=== PATIENT | male | born 1985 | race Caucasian/White ===

== ENCOUNTER 2020-12-31 07:25 | Emergency (ER) | payer OTHER, SELFPAY ==
[2020-12-31 07:40] VITALS: BP 138/94; PULSE 71; RESP 15; TEMP 36; O2SAT 98; BMI 30.1
--- NOTE | 2020-12-31 07:44 | W.ED.NAVMDI ---
HPI - Nausea/Vomiting/Diarrhea General: Chief complaint: Dizziness Stated complaint: dizzy; n/v Time Seen by Provider: 12/31/20 07:35 History of Present Illness: HPI Narrative: 35-year-old male presents emergency room complaint nausea vomiting or dizziness. Please had the symptoms for about 1 week 3 to 4 days ago he started meclizine which helps for a while but the medicine wears off he states he needs to take another one. He describes more lightheadedness now than actual dizziness or vertiginous symptoms that he had earlier in the week. There is no head trauma no previous injury. He is concerned that some Abilify that he stopped taking a week and a half ago may have something to do with this. MD elicited complaint: nausea and vomiting Onset (ago): week(s) Associated nausea: Yes Associated abdominal pain: No Exacerbating factors: movement (Change in body position) Relieving factors: rest Context: new medication (Abilify stopped approximately 10 days ago) Associated symtoms: Reports nausea; Denies altered mental status, anxiety, bloating, change in vision, chest pain, cough, diaphoresis, decreased urine output, dizziness, dysuria, epistaxis, fatigue, fecal incontinence, fevers/chills, headache(s), anorexia, malaise, myalgias, numbness, palpitations, rash, short of breath, syncope, tenesmus, tinnitus or weakness Review of Systems Const: Denies: fatigue, malaise or diaphoresis Eyes: Denies: change in vision ENMT: Denies: tinnitus or epistaxis Card: Denies: chest pain, palpitations or syncope Resp: Denies: dyspnea, productive cough or non-productive cough GI: Reports: nausea; Denies: bloating or fecal incontinence : Denies: dysuria Skin/Breast: Denies: rash or pruritus Neuro: Denies: headache(s) or dizziness Psych: Denies: anxiety PFSH ED PFSH: Social History Smoking and tobacco status: never smoked Physical Exam Const: COMMON NORMALS: no acute distress EXAM LIMITATIONS: no altered mental status GENERAL APPEARANCE: cooperative and comfortable ORIENTATION/CONSCIOUSNESS: Yes awake, Yes oriented to person, Yes oriented to place and Yes oriented to time HENMT: COMMON NORMALS: normocephalic, atraumatic and hearing grossly normal bilaterally HEAD & SCALP: normocephalic and atraumatic Neck/C-Spine: COMMON NORMALS: no JVD Resp: COMMON NORMALS: normal respiratory effort, No retractions, No use of accessory muscles and clear to auscultation bilaterally AUSCULTATION: clear to auscultation bilaterally Cardio: COMMON NORMALS: no JVD, regular rate, regular rhythm and No murmurs present (Cardio) RATE: regular rate RHYTHM: regular rhythm GI: COMMON NORMALS: Soft to palpation and No hepatosplenomegaly present AUSCULTATION: Yes normoactive bowel sounds PALPATION: Yes Soft to palpation, No Tenderness to palpation present (GI), No Guarding due to palpation present (GI) and Yes No hepatosplenomegaly present Extremity: COMMON NORMALS: normal to inspection, capillary refill normal, no clubbing, cyanosis or edema, no calf tenderness and no pedal edema Neuro: SENSORIUM/ORIENTATION: Yes oriented to person, Yes oriented to place and Yes oriented to time Skin: COMMON NORMALS: no rashes or lesions noted GENERAL SKIN EXAM: no rashes or lesions noted Course Vital Signs: Vital signs: Vital Signs Temperature 96.8 F L 12/31/20 07:40 Pulse Rate 61 12/31/20 09:36 Respiratory Rate 20 H 12/31/20 09:36 Blood Pressure 139/87 12/31/20 09:36 Pulse Oximetry 98 12/31/20 09:36 MDM - Nausea/Vomiting/Diarrhea MDM Narrative: Medical decision making narrative: Patient doing well at this point feel somewhat better will go and discharge him home and he is has labyrinthitis continue the meclizine to use as needed if not improving can follow-up with ENT or primary care for further evaluation return if has further problems. Lab Data: Labs: Lab Results 12/31/20 12/31/20 Range/Units 07:59 07:59 WBC 6.7 (4.0-10.0) 10^3/ uL RBC 5.32 H (4.1-5.3) 10^6/u L Hgb 15.9 (11.7-16.6) g/dL Hct 47.6 (42.0-52.0) % MCV 89.5 (80-94) fl MCH 29.9 (28.0-34.0) pg MCHC 33.4 (30.0-36.0) g/dL RDW 12.8 (12.1-15.1) % Plt Count 271 (130-400) 10^3/c mm MPV 11.1 H (7.4-10.4) fL Neut % (Auto) 68.1 % Lymph % (Auto) 22.2 % [place] % (Auto) 7.6 % Eos % (Auto) 1.2 % Baso % (Auto) 0.6 % Neut # (Auto) 4.57 (1.8-7.7) 10^3/u L Lymph # (Auto) 1.5 (0.8-4.8) 10^3/u L [place] # (Auto) 0.5 (0.2-0.9) 10^3/u L Eos # (Auto) 0.1 (0.0-0.8) 10^3/u L Baso # (Auto) 0.0 (0.0-0.1) 10^3/u L Nucleated RBC % (a uto) 0 % Nucleated RBCs # 0.0 /100WBC Sodium 138 (136-145) mmol/L Potassium 4.8 (3.5-5.1) mmol/L Chloride 102 (98-107) mmol/L Carbon Dioxide 26 (22-29) mmol/L Anion Gap 14.8 (5-19) BUN 10 (6-20) mg/dL Creatinine 0.9 (0.7-1.2) mg/dL GFR Calculation 95.5 (90-130) mL/min Glucose 111 (65-115) mg/dL Calculated Osmolal ity 286 (285-295) mOsm/k g Calcium 9.3 (8.5-10.5) mg/dL Discharge Plan Discharge Patient Disposition: Home Clinical Impression: Labyrinthitis Condition: Stable Prescriptions: No Action citalopram 40 mg tablet 40 mg PO DAILY RF: 0 Discharge Orders: Discharge ED (Routine); Ordered 12/31/20 Ordered By: oFrd Lopez Referrals: Jackson Rivas NP [Primary Care Provider] - Discharge Diet: Usual diet Discharge Activity: Increase activity as tolerated Patient Instructions: Opioid Safety Activity Restrictions/Additional Instructions: Continue to use the meclizine you were prescribed earlier. If persist follow-up with your primary care doctor for further evaluation or possible referral to ENT or to vestibular rehab. Coding Level of Care Code ED Door Serviceman for Chg Fwd Exam Comprehensive
[2020-12-31 07:47] VITALS: PULSE 91; RESP 17; O2SAT 99
[2020-12-31] MEDS: ondansetron 2 mg/ML SDV 2 mL 4 MG IVP (07:57)
[2020-12-31] MEDS: sodium chloride 0.9% 1,000 ML 999 ML IV (07:57)
[2020-12-31 08:14] LABS: Basophils % 0.6 %; Eosinophils # 0.1 10^3/uL (0.0-0.8); Eosinophils % 1.2 %; Hematocrit 47.6 % (42.0-52.0); Hemoglobin 15.9 g/dL (11.7-16.6); Lymphocytes # 1.5 10^3/uL (0.8-4.8); Lymphocytes % 22.2 %; Mean Corpuscular HGB Conc 33.4 g/dL (30.0-36.0); Mean Corpuscular Hemoglobin 29.9 pg (28.0-34.0); Mean Corpuscular Volume 89.5 fl (80-94); Mean Platelet Volume 11.1 fL (7.4-10.4); Monocytes # 0.5 10^3/uL (0.2-0.9); Monocytes % 7.6 %; Neutrophils # 4.57 10^3/uL (1.8-7.7); Neutrophils % 68.1 %; Nucleated Red Blood Cells % 0 %; Platelet Count 271 10^3/cmm (130-400); Red Blood Count 5.32 10^6/uL (4.1-5.3); Red Cell Distribution Width 12.8 % (12.1-15.1); White Blood Count 6.7 10^3/uL (4.0-10.0)
[2020-12-31 08:24] VITALS: BP 128/93; PULSE 57; RESP 17; O2SAT 99
[2020-12-31 08:33] LABS: Anion Gap 14.8 (5-19); Blood Urea Nitrogen 10 mg/dL (6-20); Calcium 9.3 mg/dL (8.5-10.5); Carbon Dioxide 26 mmol/L (22-29); Chloride 102 mmol/L (98-107); Glomerular Filtration Rate 95.5 mL/min (90-130); Glucose 111 mg/dL (65-115); Osmolality Calculated 286 mOsm/kg (285-295); Potassium 4.8 mmol/L (3.5-5.1); Sodium 138 mmol/L (136-145)
[2020-12-31 09:19] VITALS: BP 139/87; PULSE 61; RESP 15; O2SAT 99
[2020-12-31 09:36] VITALS: BP 139/87; PULSE 61; RESP 20; O2SAT 98
== END 2020-12-31 09:36 | disposition home or self-care (01) ==
PROVIDERS: Emergency Provider Family Medicine; PCP Nurse Practitioner Family
DX: H83.09 Labyrinthitis, unspecified ear (principal)
CPT/HCPCS: 80048; 85025; 96361; 96374; 99284; J2405; J7030

== ENCOUNTER 2021-09-22 15:57 | Emergency (ER) | payer OTHER, SELFPAY ==
[2021-09-22] VITALS (7 sets, daily range): BP systolic 124–151; BP diastolic 77–100; PULSE 60–85; RESP 14–16; TEMP 36.8; O2SAT 97–99; BMI 33.7
--- NOTE | 2021-09-22 16:08 | XRR_ITS ---
PROCEDURE INFORMATION: Exam: XR Chest Exam date and time: 09/22/2021 4:36 PM Age: 36 years old Clinical indication: Chest wall pain; Additional info: Chest pain TECHNIQUE: Imaging protocol: XR of the chest. Views: 1 view. COMPARISON: CR Cervical Spine AP/Lat* [id number] 12/12/2018 3:34 PM FINDINGS: Lungs: Unremarkable. No consolidation. Pleural spaces: Unremarkable. No pleural effusion. No pneumothorax. Heart/Mediastinum: Unremarkable. No cardiomegaly. Bones/joints: Unremarkable. XR/XR chest 1V portable [id number] IMPRESSION: No acute findings.
--- NOTE | 2021-09-22 16:47 | ED_ITS ---
HPI - Chest Pain General: Chief Complaint: Chest Pain Stated Complaint: Chest pain since 1pm Time Seen by Provider: 09/22/21 16:11 PFSH ED PFSH: Family History Other CAD (coronary artery disease) Social History Smoking and tobacco status: never smoked Alcohol intake: current Alcohol intake frequency: holidays/special occasions only History of recent travel: No Course Vital Signs: Vital signs: Vital Signs Temperature 98.2 F 09/22/21 16:01 Pulse Rate 71 09/22/21 16:01 Respiratory Rate 14 09/22/21 16:01 Blood Pressure 151/100 09/22/21 16:01 Pulse Oximetry 98 09/22/21 16:01 Discharge Plan Discharge Condition: Stable Prescriptions: No Action citalopram 40 mg tablet 40 mg PO DAILY 0RF hydrochlorothiazide 50 mg tablet 50 mg PO DAILY 0RF omeprazole 40 mg capsule,delayed release(DR/EC) 40 mg PO DAILY 0RF magnesium 30 mg Tablet 30 mg PO DAILY 0RF Referrals: Jackson Rivas NP [Primary Care Provider] - Coding Level of Care Code ED Cabin Equipment Supervisor for Karlie Guzman
[2021-09-22 16:53] LABS: Basophils # 0.1 10^3/uL (0.0-0.1); Basophils % 0.6 %; Eosinophils # 0.1 10^3/uL (0.0-0.8); Hematocrit 45.5 % (42.0-52.0); Hemoglobin 15.6 g/dL (11.7-16.6); Lymphocytes % 22.6 %; Mean Corpuscular HGB Conc 34.3 g/dL (30.0-36.0); Mean Corpuscular Hemoglobin 29.7 pg (28.0-34.0); Mean Corpuscular Volume 86.5 fl (80-94); Mean Platelet Volume 11.4 fL (7.4-10.4); Monocytes # 0.9 10^3/uL (0.2-0.9); Monocytes % 9.8 %; Neutrophils # 5.77 10^3/uL (1.8-7.7); Neutrophils % 65.7 %; Nucleated Red Blood Cells % 0 %; Platelet Count 292 10^3/cmm (130-400); Red Blood Count 5.26 10^6/uL (4.1-5.3); Red Cell Distribution Width 12.8 % (12.1-15.1); White Blood Count 8.8 10^3/uL (4.0-10.0)
--- NOTE | 2021-09-22 16:57 | ED_ITS ---
HPI - General Adult General: Chief complaint: Chest Pain Stated complaint: Chest pain since 1pm Time Seen by Provider: 09/22/21 16:11 History of Present Illness: CC: Chest Pain HPI: This is a [36]yo patient hx of family hx of CAD presenting to the ED complaining of acute sudden onset of achy chest pain since 1500 WITHOUT radiation to the back or shoulders. She was at rest when this pain started. Patient denies any pressure-like sensation or sharp stabbing chest pain. Pain is constant on relieving. No associated with shortness of breath, chest pain or dyspnea on exertion. Pain is not tearing in nature and does not radiate to the back. Pain not associated with vomiting or PO intake. Denies any recent sympathomimetic drug use. Patient denies any cough. Denies palpitations, dysphagia, diaphoresis, radiation of pain to bilateral arms, jaw. Denies F/N/V/D. Patient denies any recent immobility, surgery, unilateral leg swelling, or prior PE. Patient denies any orthopnea. Patient has first degree family with heart attack (Father in 40s) Onset: 1500 Duration: ongoing since 1500 Location: home Severity: mild/moderate Associated symptoms: Reports chest pain; Deny dyspnea, nausea, rash, palpitations or vomiting Review of Systems Const: Denies: fever(s) or chills Eyes: Denies: change in vision ENMT: Denies: mouth pain Card: Reports: chest pain; Denies: palpitations Resp: Denies: dyspnea or non-productive cough GI: Denies: abdominal pain, nausea, vomiting or diarrhea : Denies: dysuria Musc: Denies: extremity pain Skin/Breast: Denies: rash or new lesions Neuro: Denies: weakness in extremities Psych: Reports: other (Normal mood) Charanjit/Lymph: Denies: easy bruising PFSH ED PFSH: Medical History (Updated 09/22/21 @ 17:57 by Nasima Mendiola MD) No pertinent family history No pertinent past medical history Family History Other CAD (coronary artery disease) Social History Smoking and tobacco status: never smoked Alcohol intake: current Alcohol intake frequency: holidays/special occasions only History of recent travel: No Physical Exam Const: COMMON NORMALS: alert HENMT: COMMON NORMALS: atraumatic HEAD & SCALP: atraumatic MOUTH: moist mucous membranes not abnormal Eye: COMMON NORMALS: EOMs intact bilaterally and conjunctivae normal CONJU NCTIVA: Yes conjunctivae normal Neck/C-Spine: COMMON NORMALS: full ROM and supple Resp: COMMON NORMALS: normal respiratory effort and clear to auscultation bilaterally AUSCULTATION: clear to auscultation bilaterally Cardio: COMMON NORMALS: regular rate RATE: regular rate OTHER: 2+ radial pulses b/l GI: COMMON NORMALS: Soft to palpation and non-tender PALPATION: Yes Soft to palpation Extremity: COMMON NORMALS: full ROM Neuro: SENSORIUM/ORIENTATION: Yes alert MOTOR EXAM: No Abnormal motor strength present and Other motor observations present (no focal motor deficits) Psych: COMMON NORMALS: speech normal SPEECH: Yes normal speech MOOD & AFFECT: Yes euthymic mood Course Vital Signs: Vital signs: Vital Signs Temperature 98.2 F 09/22/21 16:01 Pulse Rate 60 09/22/21 18:30 Respiratory Rate 16 09/22/21 18:30 Blood Pressure 135/94 09/22/21 18:30 Pulse Oximetry 97 09/22/21 18:30 MDM - General Adult Medical Decision Making [36]yo patient w/ hx of family hx of CAD presenting to the ED with evaluation of new onset of achy chest pain x 4 hrs. HDS, pulse 2+ radially bilaterally, no signs of fluid overload, AAOx3, neuro exam intact. Given History and Exam today I have no suspicion for ACS, Pneumothorax, Pneumonia, Pulmonary Embolus, Tamponade, Aortic Dissection or other emergent problems as a cause for this presentation. Workup: ECG, CXR, CBC, BMP, Troponin Interventions: Toradol Findings: ECG: No overt evidence of STEMI, hyperacute T waves, localizable STD or T wave inversions. No evidence of Brugada?s sign, delta wave, epsilon wave, significantly prolonged QTc, or malignant arrhythmia. No Q waves. Other Labs unremarkable for emergent problems. CXR: Without PTX, PNA, or widened mediastinum Last Stress Test: never Last Heart Catheterization: never HEART Score: 0 PERC: Negative [6:45pm] On reassessment, the patient is HDS, no complaints of persistent chest pain in the ED after evaluation. ECG is non-ischemic. Workup today is unremarkable. Doubt ACS/PE or other emergent causes of chest pain. Since patient has a family history of cardiac disease, decision was made to order an outpatient cardiac stress test. I have given patient follow up with our case managers to be seen by our outpatient Cardiology for stress test. Patient aware of a call from our case managers to schedule for appointment(s) and verbalizes understanding of the importance of following up. Rx: Tylenol 500mg Q6Hrs x 4 days PRN pain Disposition: Discharge. Strict return precautions discussed with the patient with full understanding. Advised patient to follow up promptly with a primary care provider in 24-48 hrs if the patient has persistent symptoms. Given return instructions for any crushing/tearing chest pain, focal weakness, syncope or any new or concerning issues. Lab Data : 09/22/21 16:35 09/22/21 16:35 Radiology Impressions Chest X-Ray 09/22/21 16:08 IMPRESSION: No acute findings. Laboratory Results WBC 8.8 10^3/uL (4.0-10.0) 09/22/21 16:35 RBC 5.26 10^6/uL (4.1-5.3) 09/22/21 16:35 Hgb 15.6 g/dL (11.7-16.6) 09/22/21 16:35 Hct 45.5 % (42.0-52.0) 09/22/21 16:35 MCV 86.5 fl (80-94) 09/22/21 16:35 MCH 29.7 pg (28.0-34.0) 09/22/21 16:35 MCHC 34.3 g/dL (30.0-36.0) 09/22/21 16:35 RDW 12.8 % (12.1-15.1) 09/22/21 16:35 Plt Count 292 10^3/cmm (130-400) 09/22/21 16:35 MPV 11.4 fL (7.4-10.4) H 09/22/21 16:35 Neut % (Auto) 65.7 % 09/22/21 16:35 Lymph % (Auto) 22.6 % 09/22/21 16:35 [place] % (Auto) 9.8 % 09/22/21 16:35 Eos % (Auto) 1.0 % 09/22/21 16:35 Baso % (Auto) 0.6 % 09/22/21 16:35 Neut # (Auto) 5.77 10^3/uL (1.8-7.7) 09/22/21 16:35 Lymph # (Auto) 2.0 10^3/uL (0.8-4.8) 09/22/21 16:35 [place] # (Auto) 0.9 10^3/uL (0.2-0.9) 09/22/21 16:35 Eos # (Auto) 0.1 10^3/uL (0.0-0.8) 09/22/21 16:35 Baso # (Auto) 0.1 10^3/uL (0.0-0.1) 09/22/21 16:35 Nucleated RBC % (auto) 0 % 09/22/21 16:35 Nucleated RBCs # 0.0 /100WBC 09/22/21 16:35 Sodium 137 mmol/L (136-145) 09/22/21 16:35 Potassium 3.2 mmol/L (3.5-5.1) L 09/22/21 16:35 Chloride 97 mmol/L (98-107) L 09/22/21 16:35 Carbon Dioxide 29 mmol/L (22-29) 09/22/21 16:35 Anion Gap 14.2 (5-19) 09/22/21 16:35 BUN 17 mg/dL (6-20) 09/22/21 16:35 Creatinine 0.9 mg/dL (0.7-1.2) 09/22/21 16:35 GFR Calculation 95.0 mL/min (90-130) 09/22/21 16:35 Glucose 83 mg/dL (65-115) 09/22/21 16:35 Calculated Osmolality 285 mOsm/kg (285-295) 09/22/21 16:35 Calcium 9.8 mg/dL (8.5-10.5) 09/22/21 16:35 Troponin T Baseline 6 ng/L (0-15) 09/22/21 16:35 Troponin T 120 Minute 6.00 ng/L (0-15) 09/22/21 18:43 Imaging Data Other Imaging: Radiologist's impression: [place] [address] [address] XRay Report Signed Patient: Kalia Reveles Unit #: [id number] : 1985 Age/Sex: 36 / M ADM Date: 09/22/21 Loc: ER Room/Bed: Attending Dr: Ordering Provider/Ordering MD: Nasima Mendiola MD Date of Service: 09/22/21 Procedure(s): XR chest 1V portable [id number] Accession Number(s): [id number] Report Number: [id number] PROCEDURE INFORMATION: Exam: XR Chest Exam date and time: 09/22/2021 4:36 PM Age: 36 years old Clinical indication: Chest wall pain; Additional info: Chest pain TECHNIQUE: Imaging protocol: XR of the chest. Views: 1 view. COMPARISON: CR Cervical Spine AP/Lat* [id number] 12/12/2018 3:34 PM FINDINGS: Lungs: Unremarkable. No consolidation. Pleural spaces: Unremarkable. No pleural effusion. No pneumothorax. Heart/Mediastinum: Unremarkable. No cardiomegaly. Bones/joints: Unremarkable. XR/XR chest 1V portable [id number] IMPRESSION: No acute findings. ? Dictated By: Jorge Kimble DO Signed By: Jorge Kimble DO Signed Date/Time: 09/22/21 1706 DD/ 1636 Discharge Plan Discharge Patient Disposition: Home Clinical Impression: Chest pain Condition: Stable Prescriptions: New acetaminophen 500 mg tablet 500 mg PO Q6H PRN (Reason: pain) 5 Days Qty: 20 0RF No Action citalopram 40 mg tablet 40 mg PO DAILY 0RF hydrochlorothiazide 50 mg tablet 50 mg PO DAILY 0RF omeprazole 40 mg capsule,delayed release(DR/EC) 40 mg PO DAILY 0RF magnesium 30 mg Tablet 30 mg PO DAILY 0RF Discharge Orders: Discharge ED (Routine); Ordered 09/22/21 Ordered By: Nasima Mendiola Referrals: Jackson Rivas NP [Primary Care Provider] - Discharge Diet: Advance as tolerated Discharge Activity: Increase activity as tolerated Patient Instructions: Chest Pain (ED) Activity Restrictions/Additional Instructions: Come back to the emergency room if your chest pain worsens, have any fever or ch ills, worsening shortness of breath, worsening exertional lightheadedness, or any new or concerning complaints. Our case managers will have you follow-up with Cardiology in the next few days for outpatient stress test. You would be expected to have a phone call with our case managers who will put you on the schedule. You can expect a call from us in the next 2-3 days. If you don't hear from us, call us back in the emergency room at [phone]. Coding Level of Care Code ED Muffler Installer for Karlie Fwd Exam Comprehensive
[2021-09-22 17:09] LABS: Troponin(5th) Baseline 6 ng/L (0-15)
[2021-09-22 17:10] LABS: Anion Gap 14.2 (5-19); Blood Urea Nitrogen 17 mg/dL (6-20); Calcium 9.8 mg/dL (8.5-10.5); Carbon Dioxide 29 mmol/L (22-29); Chloride 97 mmol/L (98-107); Glucose 83 mg/dL (65-115); Osmolality Calculated 285 mOsm/kg (285-295); Potassium 3.2 mmol/L (3.5-5.1); Sodium 137 mmol/L (136-145)
[2021-09-22] MEDS: ketorolac 30 mg/mL INJ IVP (18:02)
--- NOTE | 2021-09-22 18:08 | ECG_ITS ---
[facility] Test Date: 2021-09-22 Pat Name: Kalia Reveles Department: Room: Gender: Male Shoe Salesman: : 1985 Requested By: Nasima Mendiola Order Number: [id number] Akira MD: Claude Puente M.D. Measurements Intervals [place] Rate: 63 P: 62 NV: 162 QRS: 7 QRSD: 108 T: 51 QT: 437 QTc: 448 Interpretive Statements SINUS RHYTHM NONSPECIFIC T-WAVE ABNORMALITY Compared to ECG 09/22/2021 16:10:09 Sinus arrhythmia no longer present Intraventricular conduction delay no longer present T-wave abnormality still present Electronically Signed On 09-22-2021 22:28:26 CDT by Claude Puente M.D. [email or web address]/store/[id number]
--- NOTE | 2021-09-22 22:08 | ECG_ITS ---
[facility] Test Date: 2021-09-22 Pat Name: Kalia Reveles Department: Room: Gender: Male Night Nurse: : 1985 Requested By: Nasima Mendiola Order Number: [id number] Akira MD: Claude Puente M.D. Measurements Intervals [place] Rate: 71 P: 62 NV: 143 QRS: 11 QRSD: 112 T: 57 QT: 430 QTc: 468 Interpretive Statements SINUS RHYTHM WITH SINUS ARRHYTHMIA MODERATE INTRAVENTRICULAR CONDUCTION DELAY [110+ ms QRS DURATION] NONSPECIFIC T-WAVE ABNORMALITY Compared to ECG 12/12/2018 15:25:58 Intraventricular conduction delay now present T-wave abnormality still present Electronically Signed On 09-22-2021 22:27:44 CDT by Claude Puente M.D. [email or web address] [id number]
--- NOTE | 2021-09-28 17:10 | DCPLANNER ---
Addendum entered by Hannah Migule 01/12/22 14:22: Patient had a follow up appointment with heart care - patient did attend appointment. Patient had an outpatient stress test scheduled - patient did attend appointment. Addendum entered by Hannah Miguel 10/06/21 07:05: Patient has a follow up appointment scheduled for Saturday, November 15, 2021 at 1:[address] Lowry at [facility]. Clinic will call patient with appointment information. Original Note: manager sharepoint had message to schedule an outpatient stress test for patient and a follow up appointment with cardiology. manager sharepoint faxed signed order to centralized scheduling, who will call patient with appointment order. manager sharepoint sent patients information to the Heart Care front staff. Patients information will be printed and reviewed. Clinic will call patient with appointment information.
== END 2021-09-22 19:34 | disposition home or self-care (01) ==
PROVIDERS: Emergency Provider Emergency Medicine; PCP Nurse Practitioner Family
DX: R07.9 Chest pain, unspecified (principal); Z82.49 Family history of ischemic heart disease and other diseases of the circulatory system
CPT/HCPCS: 71045; 80048; 84484; 85025; 93005; 96374; 99284; J1885

== ENCOUNTER 2021-11-23 08:01 | Outpatient (CLI) | payer OTHER, SELFPAY ==
--- NOTE | 2021-11-23 | ECG_ITS ---
[facility] Test Date: 2021-11-23 Pat Name: Kalia Reveles Department: Room: Gender: Male Field Evidence Technician: Zo Mcleod : 1985 Requested By: Nasima Mendiola Order Number: [id number] Akira MD: Claude Puente M.D. Interpretive Statements NAME OF STUDY: LEXISCAN SESTAMIBI STRESS TEST INDICATION: Chest Pain, PROCEDURE: At the baseline, the EKG revealed normal sinus rhythm with some nonspecific T wave changes. The baseline blood pressure was 136/88 mm Hg with a heart rate of 66 beats/min. Lexiscan was infused over a period of 20 seconds. A total of 0.4 milligrams of Lexiscan was infused. The stress phase was continued for a total of 5 minutes. Heart rate at the end of the stress phase was 92 with a blood pressure 128/81. The EKG at the peak infusion revealed no significant changes. Sestamibi was injected 20 seconds after the Lexiscan infusion. Blood pressure at the end of the recovery phase was 131/78 with a heart rate of 80 per minute. CONCLUSION: 1. No significant EKG changes with the LexiScan infusion 2. No LexiScan induced chest pain or cardiac arrhythmia 3. Normal blood pressure and heart rate response 4. Sestamibi/sestamibi perfusion scan pending; see separate report. Electronically Signed On 11-24-2021 18:12:03 CDT by Claude Puente M.D. [id number]
[2021-11-23 08:35] VITALS: BMI 32.0
--- NOTE | 2021-11-23 08:40 | NMCV_ITS ---
NM irvin perf SPECT r/s* [id number] Kalia Reveles Age: 36 Gender: M : 1985 Exam Date: 11/23/2021 08:40 Ordering Phys: Nasima Mendiola MD Technologist: PAULA Adrian Exam Location: [facility] Indications: CHEST PAIN STRESS TEST Please see separate stress test report in [facility] for full findings IMAGE PROTOCOL Rest/Stress 1 Lexiscan Day Radiopharmaceutical Dose (mCi) Administration Site Administered by Rest: Tc-99m 10.7 IV PAULA Lin Sestamibi Stress:Tc-99m 32.5 IV PAULA Adrian Sestamielaine Rest: 23-Nov-2021 60 Discovery 630 Stress: 23-Nov-2021 30 Discovery 630 0.4mg Lexiscan. Images obtained in supine and prone position. SPECT RESULTS Technical Quality: Excellent Raw Data Analysis: Normal Image Corrections: No attenuation or motion correction applied Summed Stress Score: 0 Summed Rest Score: 0 Summed Difference Score: 0 PERFUSION FINDINGS Uniform myocardial tracer uptake. No significant perfusion normalities. FUNCTIONAL RESULTS (calculated via Gated SPECT) Stress Image LV EF (%): 67 Stress EDV (mL):132 TID: 1.14 Stress ESV (mL):44 FUNCTIONAL FINDINGS: Segmental wall motion analysis revealing no gross wall motion abnormalities IMPRESSIONS 1. Unremarkable Myocardial perfusion imaging 2. Normal LV ejection fraction of 67%. 3. LV wall motion analysis revealing no gross wall motion abnormalities. 4. Near normal LV volume Low probability for coronary ischemia, based on the above findings Dr Claude Puente MD FACC (Electronically Signed) Final Date: 23 November 2021 18:38 S
[2021-11-23] MEDS: regadenoson 0.4 Mg/5 ml Syringe IVP (10:47)
[2021-11-23 11:06] VITALS: BP 131/78; PULSE 79
== END 2021-11-23 08:02 | disposition home or self-care (01) ==
PROVIDERS: PCP Nurse Practitioner Family; Visit Provider Emergency Medicine
DX: R07.9 Chest pain, unspecified (principal)
CPT/HCPCS: 78452; 93017; A9500; J2785

== ENCOUNTER 2021-12-06 09:28 | Emergency (ER) | payer OTHER, SELFPAY ==
[2021-12-06] VITALS (28 sets, daily range): BP systolic 121–160; BP diastolic 74–99; PULSE 48–72; RESP 12–22; TEMP 36.7; O2SAT 97–100; BMI 32.3
--- NOTE | 2021-12-06 10:12 | ECG_ITS ---
[facility] Test Date: 2021-12-06 Pat Name: Kalia Reveles Department: Room: Gender: Male Mold Maker: : 1985 Requested By: Keyon Hyatt Order Number: [id number] Champion MD: Mikala Lowry M.D. Measurements Intervals [place] Rate: 61 P: 66 SD: 151 QRS: 19 QRSD: 105 T: 43 QT: 422 QTc: 428 Interpretive Statements SINUS RHYTHM Compared to ECG 09/22/2021 18:50:28 T-wave abnormality no longer present Electronically Signed On 12-07-2021 18:49:12 CDT by Mikala Lowry M.D. [id number]
--- NOTE | 2021-12-06 12:59 | ED_ITS ---
HPI - General Adult General: Chief complaint: Syncope Stated complaint: Blacked out Time Seen by Provider: 12/06/21 12:54 History of Present Illness: HPI: [36]yo patient w/ no PMH presents emergency room after an episode of syncope at 9 AM. 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 Patient reports feeling nauseous prior to this except syncopized. The incident was witnessed by the patient?s coworkers who reported LOC. She did not hit his head according to his coworkers who lost consciousness for a minute. Patient could not recall the incident but denies a ny post-ictal confusion, tongue biting or bladder/bowel incontinence. Patient denies any prior hx of syncope in the past. No associated symptoms of chest pain, shortness of breath, palpitations or focal weakness right before the incident. No family hx of sudden cardiac or unexplained . Onset: 9am Duration: once Location: home Severity: moderate Associated symptoms: Deny chest pain, dyspnea, nausea, rash, palpitations or vomiting Review of Systems Const: Denies: fever(s) or chills Eyes: Denies: change in vision ENMT: Denies: mouth pain Card: Denies: chest pain or palpitations Resp: Denies: dyspnea or non-productive cough GI: Denies: abdominal pain, nausea, vomiting or diarrhea : Denies: dysuria Musc: Denies: extremity pain Skin/Breast: Reports: other; Denies: rash or new lesions Neuro: Reports: other (+sycnope); Denies: weakness in extremities Psych: Reports: other (Normal mood) Charanjit/Lymph: Denies: easy bruising PFSH ED PFSH: Medical History Family history of coronary artery disease occurring prior to 55 years of age Hypertension No pertinent family history No pertinent past medical history Family History Father , [place] 43 y/o Myocardial infarction Mother Hyperlipidemia Other CAD (coronary artery disease) Social History Smoking and tobacco status: never smoked Alcohol intake: current Alcohol intake frequency: holidays/special occasions only History of recent travel: No Physical Exam Const: COMMON NORMALS: alert HENMT: COMMON NORMALS: atraumatic HEAD & SCALP: atraumatic MOUTH: moist mucous membranes not abnormal Eye: COMMON NORMALS: EOMs intact bilaterally and conjunctivae normal CONJUNCTIVA: Yes conjunctivae normal Neck/C-Spine: COMMON NORMALS: full ROM and supple Resp: COMMON NORMALS: normal respiratory effort and clear to auscultation bilaterally AUSCULTATION: clear to auscultation bilaterally Cardio: COMMON NORMALS: regular rate RATE: regular rate GI: COMMON NORMALS: Soft to palpation and non-tender PALPATION: Yes Soft to palpation Extremity: COMMON NORMALS: full ROM Neuro: SENSORIUM/ORIENTATION: Yes alert MOTOR EXAM: No Abnormal motor strength present and Other motor observations present (no focal motor deficits) OTHER: Mental status? Awake, alert, and oriented to self, year, month, location, and situation.? Following simple axial and appendicular commands.? Has appropriate fund of knowledge, comprehension, and insight.? Able to recall and understands pertinent aspects of medical history and current treatment status.? ? Language? Speech is fluent without word-finding difficulties.? Intact naming, expression, secretary receptionist, and repetition.? ? Cranial nerves? 2,3,4,6: PERRL, EOMI with no nystagmus. 5: Intact sensation to light touch, symmetric? 7: Smile symmetrical, no facial droop.? 8: Hearing grossly intact.? 9,10: Normal palate movement.? 11: Normal strength in trapezius bilaterally 12: Tongue protrudes midline.? ? Motor examination? Normal bulk & tone. Strength as follows (R/L): Delts (5/5), Biceps (5/5), Triceps (5/5), Wrist ext (5/5), hip flexors (5/5), plantarflexors (5/5), dorsiflexors (5/5). Sensation? Light Touch: Grossly intact and equal in upper and lower extremities bilaterally? Romberg: Negative.? Distal joint position sense intact ? Coordination? Vhbdfb-at-geoi-finger movements intact without dysmetria or past-pointing.? Rapid fingertaps: preserved amplitude without decriment.? No tremor, myoclonus or truncal ataxia.? ? Gait/stance? Steady, normal narrow base gait with appropriate arm swing and turning.? Tandem gait without hesitation or loss of balance. Psych: COMMON NORMALS: speech normal SPEECH: Yes normal speech MOOD & AFFECT: Yes euthymic mood Course Vital Signs: Vital signs: Vital Signs Temperature 98.1 F 12/06/21 10:02 Pulse Rate 66 12/06/21 15:16 Respiratory Rate 16 12/06/21 15:16 Blood Pressure 121/74 12/06/21 15:16 Pulse Oximetry 100 12/06/21 15:16 Oxygen Delivery Me thod 12/06/21 10:02 MDM - General Adult Medical Decision Making [36]yo patient w/ no PMH presenting to the ED with Syncope. No association with chest pain, dyspnea, palpitations, or focal neurological deficits. HDS Neuro intact. Fingerstick wnl. Given history, exam and workup, presentation not consistent with seizures given a short time course, no postictal state, no seizure activity. Low suspicion for acute neurologic catastrophes to include ICH given lack of trauma, risk factors for bleeding diathesis, or neurogenic causes of syncope. Low suspicion for vascular catastrophes to include PE, thoracic aortic dissection, AAA rupture. Presentation not consistent with acute life threatening arrhythmia, structural heart disease, electrical conduction abnormalities, or ACS. Workup: CBC, BMP EKG, fingerstick, orthostatics, and if female, telemetry, reassessment, and PO challenge Intervention: Serial reevaluation, telemetry, PO challenge Findings: EKG: No e/o STEMI. No evidence of Brugada?s sign, delta wave, epsilon wave, significantly prolonged QTc, HOCM or malignant arrhythmia. SF Syncope Rule: 0 Mcdonald Syncope Risk Score: 0 [2:34pm] On reassessment, patient denies any syncope or near syncope episodes in the ER. Telemetry without any dysrhythmia. Patient has been able to tolerate PO and ambulate in the ER without issues. Given age, limited to no comorbidities, no family hx of SCD, history more consistent with situational/reflex syncope vs orthostatic/decreased fluid intake, patient is unlikely to experience sudden cardiac decompensation at this time and will NOT benefit from inpatient observation/telemetry at this time. Although the incidence of paroxysmal ventricular tachycardia/VF is very unlikely, I instructed the patient to follow up with a PCP and a Take Up Supervisor for further evaluation of syncope should the patient need it. Disposition: Discharge. Patient is at baseline at this time. Return precautions expressed and understood in person. Advised follow up with a primary care provider or clinic physician in the next 24-48 hours. Given return instructions for any new or concerning symptoms including chest pain, focal neurological deficits, dyspnea, or any new or concerning findings. Lab Data : 12/06/21 13:44 12/06/21 13:44 Laboratory Results WBC 8.6 10^3/uL (4.0-10.0) 12/06/21 13:44 RBC 5.27 10^6/uL (4.1-5.3) 12/06/21 13:44 Hgb 15.4 g/dL (11.7-16.6) 12/06/21 13:44 Hct 46.4 % (42.0-52.0) 12/06/21 13:44 MCV 88.0 fl (80-94) 12/06/21 13:44 MCH 29.2 pg (28.0-34.0) 12/06/21 13:44 MCHC 33.2 g/dL (30.0-36.0) 12/06/21 13:44 RDW 13.1 % (12.1-15.1) 12/06/21 13:44 Plt Count 270 10^3/cmm (130-400) 12/06/21 13:44 MPV 10.8 fL (7.4-10.4) H 12/06/21 13:44 Neut % (Auto) 71.4 % 12/06/21 13:44 Lymph % (Auto) 19.9 % 12/06/21 13:44 [place] % (Auto) 6.8 % 12/06/21 13:44 Eos % (Auto) 1.3 % 12/06/21 13:44 Baso % (Auto) 0.5 % 12/06/21 13:44 Neut # (Auto) 6.17 10^3/uL (1.8-7.7) 12/06/21 13:44 Lymph # (Auto) 1.7 10^3/uL (0.8-4.8) 12/06/21 13:44 [place] # (Auto) 0.6 10^3/uL (0.2-0.9) 12/06/21 13:44 Eos # (Auto) 0.1 10^3/uL (0.0-0.8) 12/06/21 13:44 Baso # (Auto) 0.0 10^3/uL (0.0-0.1) 12/06/21 13:44 Nucleated RBC % (auto) 0 % 12/06/21 13:44 Nucleated RBCs # 0.0 /100WBC 12/06/21 13:44 Sodium 141 mmol/L (136-145) 12/06/21 13:44 Potassium 3.6 mmol/L (3.5-5.1) 12/06/21 13:44 Chloride 104 mmol/L (98-107) 12/06/21 13:44 Carbon Dioxide 26 mmol/L (22-29) 12/06/21 13:44 Anion Gap 14.6 (5-19) 12/06/21 13:44 BUN 12 mg/dL (6-20) 12/06/21 13:44 Creatinine 0.8 mg/dL (0.7-1.2) 12/06/21 13:44 GFR Calculation 108.8 mL/min (90-130) 12/06/21 13:44 Glucose 84 mg/dL (65-115) 12/06/21 13:44 Calculated Osmolality 291 mOsm/kg (285-295) 12/06/21 13:44 Calcium 9.1 mg/dL (8.5-10.5) 12/06/21 13:44 Total Bilirubin 0.4 mg/dL (0.15-1.2) 12/06/21 13:44 AST 21 U/L (0-40) 12/06/21 13:44 ALT 26 U/L (0-41) 12/06/21 13:44 Alkaline Phosphatase 84 IU/L (40-130) 12/06/21 13:44 Troponin T Gen 5 ng/L 6 ng/L (0-15) 12/06/21 13:44 Total Protein 6.9 g/dL (6.6-8.7) 12/06/21 13:44 Albumin 4.5 g/dL (3.5-5.2) 12/06/21 13:44 Globulin 2.4 g/dL (1.3-4.6) 12/06/21 13:44 Discharge Plan Discharge Patient Disposition: Home Clinical Impression: Syncope and collapse Condition: Stable Prescriptions: No Action citalopram 40 mg tablet 40 mg PO QAM hydrochlorothiazide 50 mg tablet 50 mg PO QAM magnesium oxide 400 mg magnesium Tablet 400 mg PO BEDTIME Discharge Orders: Discharge ED (Routine); Ordered 12/06/21 Ordered By: Nasima Mendiola Referrals: Jackson Rivas NP [Primary Care Provider] - Discharge Diet: Advance as tolerated Discharge Activity: Increase activity as tolerated Patient Instructions: Syncope (ED) Activity Restrictions/Additional Instructions: Please come back to the emergency room for any more breakthrough episodes of passing out. Come back if any weakness in her arms, drooling, difficulty speaking, any neurological symptoms, chest pain/shortness of breath/palpitation or any new or concerning issues. Please do not swim, bathe, operate heavy machinery or drive a vehicle unattended. Stand Alone Forms: Work/School Release Coding Level of Care Code ED Tank Cooper for Patriciag Fwd Exam Comprehensive
--- NOTE | 2021-12-06 13:04 | PC.NURSE ---
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 pt reports he started feeling lightheaded, went to tell a coworker, and then woke up on the ground. Pt reports on average he drinks 2 glasses of water a day. denies hx of similar episodes. pt a&ox4, perrl, direct mail coordinator equal, equal push/pull, brisk cap refill, skin pink/warm/dry. lung sounds clear bilat. bowel sounds present. visitor at bedside. call light within reach
[2021-12-06] MEDS: sodium chloride 0.9% 1,000 ML 999 ML IV (13:50)
[2021-12-06 13:54] LABS: Basophils % 0.5 %; Eosinophils # 0.1 10^3/uL (0.0-0.8); Eosinophils % 1.3 %; Hematocrit 46.4 % (42.0-52.0); Hemoglobin 15.4 g/dL (11.7-16.6); Lymphocytes # 1.7 10^3/uL (0.8-4.8); Lymphocytes % 19.9 %; Mean Corpuscular HGB Conc 33.2 g/dL (30.0-36.0); Mean Corpuscular Hemoglobin 29.2 pg (28.0-34.0); Mean Platelet Volume 10.8 fL (7.4-10.4); Monocytes # 0.6 10^3/uL (0.2-0.9); Monocytes % 6.8 %; Neutrophils # 6.17 10^3/uL (1.8-7.7); Neutrophils % 71.4 %; Nucleated Red Blood Cells % 0 %; Platelet Count 270 10^3/cmm (130-400); Red Blood Count 5.27 10^6/uL (4.1-5.3); Red Cell Distribution Width 13.1 % (12.1-15.1); White Blood Count 8.6 10^3/uL (4.0-10.0)
[2021-12-06 14:15] LABS: Troponin T (5th) Once 6 ng/L (0-15)
[2021-12-06 14:17] LABS: Alanine Aminotransferase 26 U/L (0-41); Albumin Level 4.5 g/dL (3.5-5.2); Alkaline Phosphatase 84 IU/L (40-130); Anion Gap 14.6 (5-19); Aspartate Amino Transferase 21 U/L (0-40); Blood Urea Nitrogen 12 mg/dL (6-20); Calcium 9.1 mg/dL (8.5-10.5); Carbon Dioxide 26 mmol/L (22-29); Chloride 104 mmol/L (98-107); Creatinine Clr Calc Pharmacy 151.3227; Globulin 2.4 g/dL (1.3-4.6); Glomerular Filtration Rate 108.8 mL/min (90-130); Glucose 84 mg/dL (65-115); Osmolality Calculated 291 mOsm/kg (285-295); Potassium 3.6 mmol/L (3.5-5.1); Sodium 141 mmol/L (136-145); Total Bilirubin 0.4 mg/dL (0.15-1.2); Total Protein 6.9 g/dL (6.6-8.7)
== END 2021-12-06 15:17 | disposition home or self-care (01) ==
PROVIDERS: Emergency Medicine; Emergency Provider Emergency Medicine; PCP Nurse Practitioner Family
DX: R55 Syncope and collapse (principal); I10 Essential (primary) hypertension
CPT/HCPCS: 80053; 84484; 85025; 93005; 96360; 99284; J7030

== ENCOUNTER 2023-02-20 07:49 | Emergency (ER) | payer SELFPAY ==
--- NOTE | 2023-02-20 07:55 | ECG_ITS ---
[facility] Test Date: 2023-02-20 Pat Name: Kalia Reveles Department: Room: Gender: Male [employer]: : 1985 Requested By: Jeanette Velasquez Order Number: [id number] Akira MD: Alexandro Godinez M.D. Measurements Intervals [place] Rate: 80 P: 35 MS: 147 QRS: -12 QRSD: 98 T: 19 QT: 392 QTc: 452 Interpretive Statements SINUS RHYTHM POSSIBLE LEFT ATRIAL ENLARGEMENT [-0.1mV P-WAVE IN V1/V2] Compared to ECG 12/06/2021 10:12:11 No significant changes Electronically Signed On 02-20-2023 8:44:01 CDT by Alexandro Godinez M.D. [email or web address]/store/[id number]
[2023-02-20 07:59] VITALS: BP 142/96; PULSE 84; RESP 18; TEMP 36.8; O2SAT 98; BMI 34.7
--- NOTE | 2023-02-20 08:00 | ED_ITS ---
HPI - Syncope General: Chief Complaint: Syncope Stated Complaint: passed out Time Seen by Provider: 02/20/23 07:54 Source: patient Mode of arrival: ambulatory Limitations: no limitations History of Present Illness: 37-year-old male states he got up this morning any walk to the bathroom and passed out. He is unsure how long he passed out for he denies any headache or chest pain before the event he did have some lightheadedness he had some slight nausea. States he is felt fine since the incident no chest pain no headache did not hit his head that he knows of. He has had a syncopal event in the past denies any vomiting or diarrhea. States he also has had some left neck pain over the last 5 to 6 days states he had woken up with a pelvic he slept wrong states tender to touch along with pain when he moves his left arm or turns his head denies any increase in that pain Associated symptoms: Deny abdominal pain, chest pain, fever(s), headache(s) or nausea Review of Systems Const: Denies: fever(s), chills, body aches or change in appetite Eyes: Denies: eye discomfort ENMT: Denies: throat pain or dental pain Card: Reports: syncope; Denies: chest pain Resp: Denies: dyspnea GI: Denies: abdominal pain, nausea, vomiting or diarrhea : Denies: dysuria Musc: Denies: neck pain or back pain Skin/Breast: Denies: rash Neuro: Denies: headache(s) PFSH ED PFSH: Medical History Family history of coronary artery disease occurring prior to 55 years of age Hypertension No pertinent family history No pertinent past medical history Family History Father , [place] 43 y/o Myocardial infarction Mother Hyperlipidemia Other CAD (coronary artery disease) Social History Smoking and tobacco/nicotine status: never used tobacco/nicotine Alcohol intake: current Alcohol intake frequency: holidays/special occasions only Physical Exam Const: COMMON NORMALS: no acute distress, patient oriented x3 and healthy appearing HENMT: COMMON NORMALS: normocephalic and atraumatic HEAD & SCALP: normocephalic and atraumatic Eye: COMMON NORMALS: Equal, round and reactive pupils present and EOMs intact bilaterally PUPIL: Yes Equal, round and reactive pupils present Neck/C-Spine: COMMON NORMALS: full ROM and supple OTHER: Tenderness over left trapezius muscle no midline tenderness Chest: COMMONS NORMALS: normal inspection of the chest and normal palpation of entire chest wall Resp: COMMON NORMALS: normal respiratory effort, No retractions, No use of accessory muscles and clear to auscultation bilaterally AUSCULTATION: clear to auscultation bilaterally Cardio: COMMON NORMALS: regular rate, regular rhythm and No murmurs present (Cardio) RATE: regular rate RHYTHM: regular rhythm Extremity: COMMON NORMALS: normal to inspection and full ROM Neuro: COMMON NORMALS: patient oriented x3, moves all extremities and no focal motor deficits Psych: COMMON NORMALS: mental status grossly normal, Normal thought process present and cooperative THOUGHT PROCESS: Normal thought process present Skin: COMMON NORMALS: no rashes or lesions noted and no wounds GENERAL SKIN EXAM: no rashes or lesions noted Course Vital Signs: Vital signs: Vital Signs Temperature 98.2 F 02/20/23 07:59 Pulse Rate 76 02/20/23 08:03 Respiratory Rate 16 02/20/23 08:03 Blood Pressure 138/95 02/20/23 08:03 Pulse Oximetry 97 02/20/23 08:03 Oxygen Delivery Me thod Room Air 02/20/23 08:03 MDM - Syncope Medical Decision Making Patient presents with a syncopal event is likely a vagal episode has been well- appearing here area has no signs of cardiac cause blood count here is normal no signs of neuro cause as well. He is stable for discharge and orthostatic vitals are normal he is to follow-up with PCP and return if worsening. Patient also has neck pains likely cervical muscle strain he has no midline tenderness we will place him on Naprosyn Robaxin he is to ice Medical Records I reviewed the patient's medical records. Lab Data I reviewed the patient's lab results. 02/20/23 08:04 Laboratory Results WBC 7.20 10^3/uL (3.29-11.43) 02/20/23 08:04 RBC 5.48 10^6/uL (3.85-5.65) 02/20/23 08:04 Hgb 16.00 g/dL (11.27-16.99) 02/20/23 08:04 Hct 47.4 % (37-53) 02/20/23 08:04 MCV 86.5 fl (82-101) 02/20/23 08:04 MCH 29.2 pg (27-33) 02/20/23 08:04 MCHC 33.8 g/dL (30-55) 02/20/23 08:04 RDW 12.9 % (12.1-15.1) 02/20/23 08:04 Plt Count 276 10^3/cmm (157-399) 02/20/23 08:04 MPV 10.7 fL (7.4-10.4) H 02/20/23 08:04 Neut % (Auto) 66.3 % 02/20/23 08:04 Lymph % (Auto) 22.9 % 02/20/23 08:04 [place] % (Auto) 8.8 % 02/20/23 08:04 Eos % (Auto) 1.3 % 02/20/23 08:04 Baso % (Auto) 0.6 % 02/20/23 08:04 Neut # (Auto) 4.78 10^3/uL (1.8-7.7) 02/20/23 08:04 Lymph # (Auto) 1.7 10^3/uL (0.8-4.8) 02/20/23 08:04 [place] # (Auto) 0.6 10^3/uL (0.2-0.9) 02/20/23 08:04 Eos # (Auto) 0.1 10^3/uL (0.0-0.8) 02/20/23 08:04 Baso # (Auto) 0.0 10^3/uL (0.0-0.1) 02/20/23 08:04 Nucleated RBC % (auto) 0 % 02/20/23 08:04 Nucleated RBCs # 0.0 /100WBC 02/20/23 08:04 No radiology studies performed this visit EKG Data EKG 1: I personally reviewed and interpreted this EKG as follows: EKG interpretation date: 02/20/23 EKG interpretation time: 08:11 Interpretation: nsr hr [address] or t wave abnormalities qrs 98 qtc 427 Discharge Plan Discharge Patient Disposition: Home Clinical Impression: Syncope, Cervical strain Condition: Stable Prescriptions: New methocarbamol 750 mg tablet 750 mg PO Q6H PRN (Reason: spasms) Qty: 20 0RF naproxen [Naprosyn] 500 mg tablet 500 mg PO BID PRN (Reason: pain) Qty: 20 0RF No Action citalopram 40 mg tablet 40 mg PO QAM lisinopril 20 mg tablet 20 mg PO DAILY atorvastatin 20 mg tablet 20 mg PO DAILY magnesium oxide 400 mg magnesium Tablet 400 mg PO BEDTIME Discharge Orders: Discharge ED (Routine); Ordered 02/20/23 Ordered By: Jeanette Velasquez Referrals: Dong Orozco MD [Primary Care Provider] - 1-3 days Discharge Diet: Advance as tolerated Discharge Activity: Resume usual activity Patient Instructions: Cervical Strain (ED), Syncope (ED) Coding Level of Care Code ED Ethnographic Materials Conservator for Karlie Guzman
[2023-02-20 08:03] VITALS: BP 138/95; PULSE 76; RESP 16; O2SAT 97
[2023-02-20 08:09] LABS: Basophils % 0.6 %; Eosinophils # 0.1 10^3/uL (0.0-0.8); Eosinophils % 1.3 %; Hematocrit 47.4 % (37-53); Lymphocytes # 1.7 10^3/uL (0.8-4.8); Lymphocytes % 22.9 %; Mean Corpuscular HGB Conc 33.8 g/dL (30-55); Mean Corpuscular Hemoglobin 29.2 pg (27-33); Mean Corpuscular Volume 86.5 fl (82-101); Mean Platelet Volume 10.7 fL (7.4-10.4); Monocytes # 0.6 10^3/uL (0.2-0.9); Monocytes % 8.8 %; Neutrophils # 4.78 10^3/uL (1.8-7.7); Neutrophils % 66.3 %; Nucleated Red Blood Cells % 0 %; Platelet Count 276 10^3/cmm (157-399); Red Blood Count 5.48 10^6/uL (3.85-5.65); Red Cell Distribution Width 12.9 % (12.1-15.1)
[2023-02-20 08:16] VITALS: BP 150/90; PULSE 82
[2023-02-20 08:17] VITALS: BP 147/102; BP 150/90; BP 151/101; PULSE 87; PULSE 92; PULSE 96
[2023-02-20 08:40] VITALS: BP 138/95; PULSE 76; RESP 16; O2SAT 97
== END 2023-02-20 08:41 | disposition home or self-care (01) ==
PROVIDERS: Emergency Provider Emergency Medicine; PCP Family Medicine
DX: R55 Syncope and collapse (principal); S16.1XXA Strain of muscle, fascia and tendon at neck level, initial encounter; I10 Essential (primary) hypertension; W18.39XA Other fall on same level, initial encounter
CPT/HCPCS: 36415; 85025; 93005; 99284

== ENCOUNTER 2023-03-28 10:50 | Emergency (ER) | payer SELFPAY ==
[2023-03-28 11:00] VITALS: BP 149/101; PULSE 89; RESP 17; TEMP 36.8; O2SAT 100
--- NOTE | 2023-03-28 11:24 | XR_ITS ---
WS: [id number] Chest 2 views, 03/28/2023 Clinical Data: shortness of breath, abnormal cxr from chiropractor Comparison: Portable chest, 09/22/2021 Findings: No nodules, masses or effusions are seen. The heart is normal. The pulmonary vascularity is not increased. No pneumonia or pneumothorax is seen. Impression: Negative chest.
--- NOTE | 2023-03-28 11:24 | ECG_ITS ---
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 Measurements Intervals [place] Rate: 72 P: 54 ID: [id number] QRS: -4 QRSD: 104 T: 51 QT: 374 QTc: 411 Interpretive Statements SINUS RHYTHM Normal EKG Compared to ECG 02/20/2023 08:11:07 No significant changes Electronically Signed On 03-28-2023 16:27:57 METEOROLOGICAL EQUIPMENT REPAIRER by Oj Scott M.D. [email or web address] [email or web address]/store/[id number]
--- NOTE | 2023-03-28 12:10 | ED_ITS ---
HPI - SOB/Dyspnea 2 General: Chief Complaint: Shortness of Breath/Dyspnea Stated Complaint: sob Time Seen by Provider: 03/28/23 11:14 History of Present Illness: HPI Narrative: Patient presents to the ER with complaints of minimal shortness of breath but more that when he takes a big deep breath his right lateral ribs have a sharp stabbing feeling. Patient did go to the chiropractor on Saturday and had an x- ray through his office and he was told that something was abnormal but he does not remember what was abnormal nor what side it was on. Patient's oxygen saturation is 100% on room air. If patient is taking small to medium breaths he does not feel any pain at all it is only when he takes a big deep breath on his right side is a sharp stabbing pain. Patient is in no acute distress and is nontoxic. Review of Systems 2 General: Reports: 10 or more systems reviewed and unremarkable except in HPI and below PFSH ED 2 PFSH: Medical History Family history of coronary artery disease occurring prior to 55 years of age Hypertension No pertinent past medical history No pertinent family history Family History Father , [place] 43 y/o Myocardial infarction Mother Hyperlipidemia Other CAD (coronary artery disease) Social History Smoking and tobacco/nicotine status: never used tobacco/nicotine Alcohol intake: current Alcohol intake frequency: holidays/special occasions only Physical Exam 2 Const: COMMON NORMALS: no acute distress, average body habitus, patient oriented x3, no limitations, healthy appearing, alert and well nourished HENMT: COMMON NORMALS: normocephalic, atraumatic, hearing grossly normal bilaterally, external ears normal, Normal external nose present, moist oral mucous membranes and oropharynx normal HEAD & SCALP: normocephalic and atraumatic NOSE: Normal external nose present EXTERNAL EAR: Yes external ears normal Neck/C-Spine: COMMON NORMALS: no JVD Chest: COMMONS NORMALS: normal inspection of the chest and normal palpation of entire chest wall Resp: COMMON NORMALS: normal respiratory effort, No retractions, No use of accessory muscles and clear to auscultation bilaterally AUSCULTATION: clear to auscultation bilaterally Cardio: COMMON NORMALS: no JVD, regular rate, regular rhythm, S1 normal heart sound present, S2 normal heart sound present, No gallops present (Cardio), No clicks present (Cardio), No murmurs present (Cardio) and No rub (Cardio) R ATE: regular rate RHYTHM: regular rhythm HEART SOUNDS: S1 normal heart sound present and S2 normal heart sound present GI: COMMON NORMALS: Normal to inspection, nondistended, normoactive bowel sounds present, Soft to palpation, non-tender, No hepatosplenomegaly present and no masses PALPATION: Yes Soft to palpation and Yes No hepatosplenomegaly present Neuro: COMMON NORMALS: patient oriented x3 SENSORIUM/ORIENTATION: Yes alert Course 2 Vital Signs: Vital signs: Vital Signs Temperature 98.3 F 03/28/23 11:00 Pulse Rate 74 03/28/23 12:17 Respiratory Rate 17 03/28/23 12:17 Blood Pressure 181/97 03/28/23 12:17 Pulse Oximetry 100 03/28/23 12:17 Oxygen Delivery Me thod Room Air 03/28/23 12:17 MDM - SOB/Dyspnea Medical Decision Making Patient presents with right-sided rib type pain when he takes a big deep breath. And a potential abnormal x-ray per the chiropractor. We repeated a 2 view x- ray which the radiologist read off as negative with no acute findings. Lab work was obtained and included CBC CMP sed rate and CRP all of which was essentially negative except very minimally elevated liver enzymes of AST at 42 and ALT 70 approximately it is felt that this pain in the right side when the patient takes a big deep breath is probably pleuritic type chest wall pain in nature. Patient be placed on a small short course of prednisone and be instructed to follow-up with his PCP for further evaluation and treatment as needed. This was explained to the patient and family. Differential Diagnosis Unlikely acute exacerbation of chronic obstructive airways disease, congestive heart failure, community acquired pneumonia, asthma with exacerbation or pulmonary embolism Medical Records I reviewed the patient's medical records. Lab Data I reviewed the patient's lab results. 03/28/23 10:08 03/28/23 10:08 Labs/Radiology: Laboratory Results WBC 8.75 10^3/uL (3.29-11.43) 03/28/23 10:08 RBC 5.58 10^6/uL (3.85-5.65) 03/28/23 10:08 Hgb 16.20 g/dL (11.27-16.99) 03/28/23 10:08 Hct 48.8 % (37-53) 03/28/23 10:08 MCV 87.5 fl (82-101) 03/28/23 10:08 MCH 29.0 pg (27-33) 03/28/23 10:08 MCHC 33.2 g/dL (30-55) 03/28/23 10:08 RDW 13.2 % (12.1-15.1) 03/28/23 10:08 Plt Count 312 10^3/cmm (157-399) 03/28/23 10:08 MPV 11.0 fL (7.4-10.4) H 03/28/23 10:08 Neut % (Auto) 77.4 % 03/28/23 10:08 Lymph % (Auto) 14.5 % 03/28/23 10:08 [place] % (Auto) 6.2 % 03/28/23 10:08 Eos % (Auto) 0.7 % 03/28/23 10:08 Baso % (Auto) 0.6 % 03/28/23 10:08 Neut # (Auto) 6.78 10^3/uL (1.8-7.7) 03/28/23 10:08 Lymph # (Auto) 1.3 10^3/uL (0.8-4.8) 03/28/23 10:08 [place] # (Auto) 0.5 10^3/uL (0.2-0.9) 03/28/23 10:08 Eos # (Auto) 0.1 10^3/uL (0.0-0.8) 03/28/23 10:08 Baso # (Auto) 0.1 10^3/uL (0.0-0.1) 03/28/23 10:08 Nucleated RBC % (auto) 0 % 03/28/23 10:08 Nucleated RBCs # 0.0 /100WBC 03/28/23 10:08 ESR 1 mm/hr (0-10) 03/28/23 10:08 Sodium 138 mmol/L (136-145) 03/28/23 10:08 Potassium 3.9 mmol/L (3.5-5.1) 03/28/23 10:08 Chloride 101 mmol/L (98-107) 03/28/23 10:08 Carbon Dioxide 22 mmol/L (22-29) 03/28/23 10:08 Anion Gap 18.9 (5-19) 03/28/23 10:08 BUN 15 mg/dL (6-20) 03/28/23 10:08 Creatinine 0.8 mg/dL (0.7-1.2) 03/28/23 10:08 GFR Calculation 108.2 mL/min (90-130) 03/28/23 10:08 Glucose 91 mg/dL (65-115) 03/28/23 10:08 Calculated Osmolality 286 mOsm/kg (285-295) 03/28/23 10:08 Calcium 9.8 mg/dL (8.5-10.5) 03/28/23 10:08 Total Bilirubin 0.3 mg/dL (0.15-1.2) 03/28/23 10:08 AST 42 U/L (0-40) H 03/28/23 10:08 ALT 70 U/L (0-41) H 03/28/23 10:08 Alkaline Phosphatase 115 U/L (40-130) 03/28/23 10:08 C-Reactive Protein 3.0 mg/L (0.0-4.9) 03/28/23 10:08 Total Protein 7.9 g/dL (6.6-8.7) 03/28/23 10:08 Albumin 4.8 g/dL (3.5-5.2) 03/28/23 10:08 Globulin 3.1 g/dL (1.3-4.6) 03/28/23 10:08 All radiology interpretation(s) finalized by discharge EKG Data EKG 1: I personally reviewed and interpreted this EKG as follows: EKG Interpretation Date: 03/28/23 EKG interpretation time: 11:07 Prior EKG tracings: not available for review Interpretation: EKG showed ventricular rate 72 beats minute, FL interval 142, QRS duration 104, QTc of 398, sinus rhythm, possible left atrial lodgment, Discharge Plan Discharge Patient Disposition: Home Clinical Impression: Right-sided chest wall pain Condition: Stable Prescriptions: New prednisone 50 mg tablet 50 mg PO DAILY 5 Days Qty: 5 0RF No Action magnesium oxide 400 mg magnesium Tablet 400 mg PO BEDTIME sertraline 50 mg tablet 50 mg PO DAILY Discharge Orders: Discharge ED (Routine); Ordered 03/28/23 Ordered By: Jd Monterroso Referrals: Dong Orozco MD [Primary Care Provider] - 1 week Patient Instructions: Chest Pain - Chest Wall Coding Level of Care Code ED Product Safety Associate for Karlie Guzman
[2023-03-28 12:17] VITALS: BP 181/97; PULSE 74; RESP 17; O2SAT 100
[2023-03-28 12:24] LABS: Basophils # 0.1 10^3/uL (0.0-0.1); Basophils % 0.6 %; Eosinophils # 0.1 10^3/uL (0.0-0.8); Eosinophils % 0.7 %; Hematocrit 48.8 % (37-53); Lymphocytes # 1.3 10^3/uL (0.8-4.8); Lymphocytes % 14.5 %; Mean Corpuscular HGB Conc 33.2 g/dL (30-55); Mean Corpuscular Volume 87.5 fl (82-101); Monocytes # 0.5 10^3/uL (0.2-0.9); Monocytes % 6.2 %; Neutrophils # 6.78 10^3/uL (1.8-7.7); Neutrophils % 77.4 %; Nucleated Red Blood Cells % 0 %; Platelet Count 312 10^3/cmm (157-399); Red Blood Count 5.58 10^6/uL (3.85-5.65); Red Cell Distribution Width 13.2 % (12.1-15.1); White Blood Count 8.75 10^3/uL (3.29-11.43)
[2023-03-28 12:28] LABS: Erythrocyte Sedimentation Rate 1 mm/hr (0-10)
[2023-03-28 12:47] LABS: Alanine Aminotransferase 70 U/L (0-41); Albumin Level 4.8 g/dL (3.5-5.2); Alkaline Phosphatase 115 U/L (40-130); Anion Gap 18.9 (5-19); Aspartate Amino Transferase 42 U/L (0-40); Blood Urea Nitrogen 15 mg/dL (6-20); Calcium 9.8 mg/dL (8.5-10.5); Carbon Dioxide 22 mmol/L (22-29); Chloride 101 mmol/L (98-107); Creatinine Clr Calc Pharmacy 149.0163; Globulin 3.1 g/dL (1.3-4.6); Glomerular Filtration Rate 108.2 mL/min (90-130); Glucose 91 mg/dL (65-115); Osmolality Calculated 286 mOsm/kg (285-295); Potassium 3.9 mmol/L (3.5-5.1); Sodium 138 mmol/L (136-145); Total Bilirubin 0.3 mg/dL (0.15-1.2); Total Protein 7.9 g/dL (6.6-8.7)
[2023-03-28 13:30] VITALS: PULSE 88; O2SAT 99
[2023-03-28 14:12] VITALS: BP 157/100; PULSE 76; O2SAT 98
== END 2023-03-28 14:14 | disposition home or self-care (01) ==
PROVIDERS: Emergency Provider Emergency Medicine; PCP Family Medicine
DX: R07.89 Other chest pain (principal); I10 Essential (primary) hypertension
CPT/HCPCS: 71046; 80053; 85025; 85651; 86140; 93005; 99285

== ENCOUNTER 2023-05-25 01:43 | Emergency (ER) | payer OTHER, SELFPAY ==
[2023-05-25 02:00] VITALS: BP 128/85; PULSE 93; RESP 20; O2SAT 100; BMI 34.0
--- NOTE | 2023-05-25 03:29 | XRR_ITS ---
PROCEDURE INFORMATION: Exam: XR Cervical Spine Exam date and time: 05/25/2023 3:32 AM Age: 38 years old Clinical indication: Patient HX: C/O neck pain radiating to left shoulder. No injury. ; Additional info: Left neck pain TECHNIQUE: Imaging protocol: Radiologic exam of the cervical spine. Views: 2 or 3 views. COMPARISON: CR XR cervical spine 3V* [id number] 12/12/2018 3:34 PM FINDINGS: Bones/joints: The cervical spine is visualized from skull base to C4 on the lateral view. Vertebral body heights are preserved. No acute fracture. Straightening of the normal lordosis, likely positional. No significant degenerative changes. Soft tissues: Unremarkable. XR/XR cervical spine 3V* [id number] IMPRESSION: No acute findings.
--- NOTE | 2023-05-25 03:31 | W.ED.BACK ---
HPI - Back Pain/Injury General: Chief Complaint: Back Pain/Injury Stated Complaint: shooting pain shoulder back and neck Time Seen by Provider: 05/25/23 03:24 History of Present Illness: 38-year-old male patient complains of left-sided pain at the base of his neck radiating towards his shoulder and up his neck to some degree. Pain to the mid arm at times. It has been going on for 3 days now. Hurts worse at night. Hurts worse with arm movement. No fever. No paresthesias. No weakness. No headache. Associated symptoms: Reports nausea; Deny chills, fever(s) or vomiting Review of Systems Const: Denies: fever(s) or chills Eyes: Denies: change in vision ENMT: Denies: throat pain Card: Denies: chest pain Resp: Denies: dyspnea GI: Reports: nausea; Denies: vomiting Musc: Reports: neck pain and back pain Skin/Breast: Denies: rash Neuro: Denies: headache(s), numbness in extremities, weakness in extremities or dizziness [facility] ED PFSH: Medical History Family history of coronary artery disease occurring prior to 55 years of age Hypertension No pertinent past medical history No pertinent family history Family History Father , [place] 43 y/o Myocardial infarction Mother Hyperlipidemia Other CAD (coronary artery disease) Social History Smoking and tobacco/nicotine status: never used tobacco/nicotine Alcohol intake: current Alcohol intake frequency: holidays/special occasions only Physical Exam Const: COMMON NORMALS: no acute distress GENERAL APPEARANCE: cooperative; not ill appearing and not frail appearing HENMT: COMMON NORMALS: normocephalic, atraumatic and Normal external nose present HEAD & SCALP: normocephalic and atraumatic FACE & SINUS: normal facial exam and face symmetric NOSE: Normal external nose present Eye: COMMON NORMALS: Equal, round and reactive pupils present and EOMs intact bilaterally PUPIL: Yes Equal, round and reactive pupils present Neck/C-Spine: GENERAL: Yes trachea midline Chest: CHEST: Yes Symmetrical chest wall rise Resp: COMMON NORMALS: normal respiratory effort, No retractions, No use of accessory muscles and clear to auscultation bilaterally AUSCULTATION: clear to auscultation bilaterally Cardio: COMMON NORMALS: regular rate and regular rhythm RATE: regular rate RHYTHM: regular rhythm Back/Pelvis: OTHER: Tenderness to the mid trapezius on the left. There is no midline cervical spine or upper thoracic spine tenderness. There is pain in the area of the mid trap on Spurling's test. Some mild muscle spasm. No deformity. Extremity: COMMON NORMALS: normal to inspection Neuro: ZOE COMA SCALE: document GCS findings [place] coma scale eye opening: Spontaneous Zoe coma scale verbal response: Orientated [place] coma scale motor response: Obey commands Zoe coma scale total score: 15 SENSORY EXAM: Yes extremities (intact) Psych: COMMON NORMALS: speech normal SPEECH: Yes normal speech Skin: COMMON NORMALS: no rashes or lesions noted GENERAL SKIN EXAM: no rashes or lesions noted Course Vital Signs: Vital signs: Vital Signs Pulse Rate 93 05/25/23 02:00 Respiratory Rate 16 05/25/23 03:33 Blood Pressure 128/85 05/25/23 02:00 Pulse Oximetry 100 05/25/23 02:00 MDM - Back Pain/Injury Medical Decision Making No radicular pain on Spurling's testing. No midline tenderness. He does have tenderness over the upper trap on the left. Palpation seems to reproduce his symptoms. No fever. Patient can move his neck without extreme pain. There is no headache. Although vertebral artery dissection would be in the differential, he does not show signs of this. His blood pressure is also well-controlled. XR interpretation done by ED provider, pending radiology final review Discharge Plan Discharge Patient Disposition: Home Clinical Impression: Acute cervical myofascial strain Condition: Stable Prescriptions: New ketorolac 10 mg tablet 10 mg PO TID PRN (Reason: pain) Qty: 10 0RF Medrol (Nicolas) 4 mg tablets,dose pack See Rx Instructions .ROUTE .COMPLEX Qty: 21 0RF Rx Instructions: orally per package directions tizanidine 4 mg capsule 4 mg PO Q8H PRN (Reason: muscle spasticity) Qty: 10 0RF No Action magnesium oxide 400 mg magnesium Tablet 400 mg PO BEDTIME sertraline 50 mg tablet 50 mg PO DAILY Discharge Orders: Discharge ED (Routine); Ordered 05/25/23 Ordered By: Marco Rosario Referrals: Dong Orozco MD [Primary Care Provider] - 1-3 days Patient Instructions: Cervical Strain (ED), Cervical Radiculopathy (ED), Opioid Safety, Pain Management Activity Restrictions/Additional Instructions: Medications as directed. Take the steroid pack whether you are in pain or not, the other medications can be used to control symptoms. See your doctor next week. Return for increasing headache, speech or language problems, weakness, numbness, other concerning symptoms. Coding Level of Care Code ED Custom Tailor for Karlie Guzman
[2023-05-25 03:33] VITALS: RESP 16
[2023-05-25] MEDS: orphenadrine 30 mg/mL Inj 2 mL 60 MG IM (03:33)
[2023-05-25] MEDS: HYDROmorphone 1 mg/mL INJ 1 mL IM (03:33)
[2023-05-25 04:25] VITALS: PULSE 59; O2SAT 96
== END 2023-05-25 04:32 | disposition home or self-care (01) ==
PROVIDERS: Emergency Provider Emergency Medicine; PCP Family Medicine
DX: S16.1XXA Strain of muscle, fascia and tendon at neck level, initial encounter (principal); I10 Essential (primary) hypertension; X58.XXXA Exposure to other specified factors, initial encounter
CPT/HCPCS: 72040; 96372; 99284; J1170; J2360

== ENCOUNTER 2023-08-12 11:14 | Outpatient (CLI) | payer OTHER, SELFPAY ==
--- NOTE | 2023-08-12 11:22 | XR_ITS ---
WS: [id number] Exam: XR foot LT min 3V* [id number] Date/Time of Exam: 08/12/2023 11:26 AM Reason For Exam: GREAT TOE PAIN No acute fracture or dislocation. Mild degenerative change at the first MP joint. No soft tissue fore ign bodies. Small posterior heel spur. IMPRESSION: 1. No fracture noted. 2. 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
== END 2023-08-12 11:15 | disposition home or self-care (01) ==
LOC: RAD 11:16
PROVIDERS: PCP Family Medicine; Visit Provider Family Medicine
DX: M19.072 Primary osteoarthritis, left ankle and foot (principal); M79.675 Pain in left toe(s)
CPT/HCPCS: 73630

== ENCOUNTER → 2024-01-02 14:05 | Outpatient (BNVA) | payer OTHER, SELFPAY | PROVIDERS: PCP Family Medicine; Visit Provider Nurse Practitioner | DX: R09.81 Nasal congestion (principal); J06.9 Acute upper respiratory infection, unspecified | CPT/HCPCS: 87426 ==

== ENCOUNTER 2024-07-31 15:20 | Emergency (ER) | payer OTHER, SELFPAY ==
[2024-07-31 15:27] VITALS: BP 132/84; PULSE 67; RESP 17; TEMP 36.7; O2SAT 100; BMI 33.0
[2024-07-31 18:03] VITALS: BP 148/67; PULSE 68; O2SAT 100
--- NOTE | 2024-07-31 18:03 | W.ED.WEAKNES ---
HPI - Weakness General: Chief complaint: Weakness Stated complaint: weakness Time Seen by Provider: 07/31/24 17:49 History of Present Illness: Patient presents to the ER with complaints of generalized weakness, vertigo, he said it today it started about noon to 1:00 he just got a lot more fatigued than normal and then he felt little dizzy like everything was getting ready to spin but then it did not spin. Now he does not have that sensation but he feels like he is dragging himself through water because it takes more effort than it should to do anything or move. Patient denies any other sensations or symptoms at this time. Such as coughs colds fever chills nausea vomiting diarrhea constipation abdominal pain pain burning frequency with urination Review of Systems General: Reports: 10 or more systems reviewed and unremarkable except in HPI and below PFSH ED PFSH: Medical History Family history of coronary artery disease occurring prior to 55 years of age Hypertension No pertinent past medical history No pertinent family history Family History Father , [place] 43 y/o Myocardial infarction Mother Hyperlipidemia Other CAD (coronary artery disease) Social History Smoking and tobacco/nicotine status: unknown if used tobacco/nicotine Alcohol intake: current Alcohol intake frequency: holidays/special occasions only Physical Exam Const: COMMON NORMALS: no acute distress, average body habitus, patient oriented x3, no limitations, healthy appearing, alert and well nourished HENMT: COMMON NORMALS: normocephalic, atraumatic, hearing grossly normal bilaterally, external ears normal, Normal external nose present, moist oral mucous membranes and oropharynx normal HEAD & SCALP: normocephalic and atraumatic NOSE: Normal external nose present EXTERNAL EAR: Yes external ears normal Eye: COMMON NORMALS: Equal, round and reactive pupils present, EOMs intact bilaterally, conjunctivae normal and no scleral icterus CONJUNCTIVA: Yes conjunctivae normal PUPIL: Yes Equal, round and reactive pupils present Neck/C-Spine: COMMON NORMALS: full ROM, no lymphadenopathy, supple, no meningeal signs and no JVD Chest: COMMONS NORMALS: normal inspection of the chest and normal palpation of entire chest wall Resp: COMMON NORMALS: normal respiratory effort, No retractions, No use of accessory muscles and clear to auscultation bilaterally AUSCULTATION: clear to auscultation bilaterally Cardio: COMMON NORMALS: no JVD, regular rate, regular rhythm, S1 normal heart sound present, S2 normal heart sound present, No gallops present (Cardio), No clicks present (Cardio) and No rub (Cardio) RATE: regular rate RHYTHM: regular rhythm HEART SOUNDS: S1 normal heart sound present and S2 normal heart sound present GI: COMMON NORMALS: Normal to inspection, nondistended, normoactive bowel sounds present, Soft to palpation, non-tender, No hepatosplenomegaly present and no masses PALPATION: Yes Soft to palpation and Yes No hepatosplenomegaly present Neuro: COMMON NORMALS: patient oriented x3 SENSORIUM/ORIENTATION: Yes alert MENINGEAL SIGNS: Yes no meningeal signs Course Vital Signs: Vital signs: Vital Signs Temperature 98.1 F 07/31/24 15:27 Pulse Rate 68 07/31/24 18:03 Respiratory Rate 17 07/31/24 15:27 Blood Pressure 148/67 07/31/24 18:03 Pulse Oximetry 100 07/31/24 18:03 Oxygen Delivery Me thod Room Air 07/31/24 18:03 MDM - Weakness Medical Decision Making Clinic evaluation was performed, lab work is obtained which is all essentially negative. These results were discussed with the patient. Patient be discharged home for further evaluation. Medical Records I reviewed the patient's medical records. Lab Data I reviewed the patient's lab results. 07/31/24 18:00 07/31/24 18:00 Laboratory Results WBC 8.95 10^3/uL (3.29-11.43) 07/31/24 18:00 RBC 5.20 10^6/uL (3.85-5.65) 07/31/24 18:00 Hgb 15.10 g/dL (11.27-16.99) 07/31/24 18:00 Hct 45.8 % (37-53) 07/31/24 18:00 MCV 88.1 fl (82-101) 07/31/24 18:00 MCH 29.0 pg (27-33) 07/31/24 18:00 MCHC 33.0 g/dL (30-55) 07/31/24 18:00 RDW 12.6 % (12.1-15.1) 07/31/24 18:00 Plt Count 283 10^3/cmm (157-399) 07/31/24 18:00 MPV 11.0 fL (7.4-10.4) H 07/31/24 18:00 Neut % (Auto) 69.3 % 07/31/24 18:00 Lymph % (Auto) 20.2 % 07/31/24 18:00 [place] % (Auto) 8.9 % 07/31/24 18:00 Eos % (Auto) 0.9 % 07/31/24 18:00 Baso % (Auto) 0.3 % 07/31/24 18:00 Neut # (Auto) 6.19 10^3/uL (1.8-7.7) 07/31/24 18:00 Lymph # (Auto) 1.8 10^3/uL (0.8-4.8) 07/31/24 18:00 [place] # (Auto) 0.8 10^3/uL (0.2-0.9) 07/31/24 18:00 Eos # (Auto) 0.1 10^3/uL (0.0-0.8) 07/31/24 18:00 Baso # (Auto) 0.0 10^3/uL (0.0-0.1) 07/31/24 18:00 Nucleated RBC % (auto) 0 % 07/31/24 18:00 Nucleated RBCs # 0.0 /100WBC 07/31/24 18:00 Sodium 139 mmol/L (136-145) 07/31/24 18:00 Potassium 3.8 mmol/L (3.5-5.1) 07/31/24 18:00 Chloride 102 mmol/L (98-107) 07/31/24 18:00 Carbon Dioxide 26 mmol/L (22-29) 07/31/24 18:00 Anion Gap 14.8 (5-19) 07/31/24 18:00 BUN 15 mg/dL (6-20) 07/31/24 18:00 Creatinine 0.8 mg/dL (0.7-1.2) 07/31/24 18:00 GFR Calculation 107.1 mL/min (90-130) 07/31/24 18:00 Glucose 90 mg/dL (65-115) 07/31/24 18:00 Calculated Osmolality 288 mOsm/kg (285-295) 07/31/24 18:00 Calcium 9.2 mg/dL (8.5-10.5) 07/31/24 18:00 Magnesium 2.1 mg/dL (1.7-2.3) 07/31/24 18:00 Total Bilirubin 0.4 mg/dL (0.15-1.2) 07/31/24 18:00 AST 27 U/L (0-40) 07/31/24 18:00 ALT 31 U/L (0-41) 07/31/24 18:00 Alkaline Phosphatase 81 U/L (40-130) 07/31/24 18:00 Total Protein 7.2 g/dL (6.6-8.7) 07/31/24 18:00 Albumin 4.7 g/dL (3.5-5.2) 07/31/24 18:00 Globulin 2.5 g/dL (1.3-4.6) 07/31/24 18:00 Urine Color Yellow (Yellow) 07/31/24 19:10 Urine Appearance Slightly cloudy (CLEAR) 07/31/24 19:10 Urine pH 7 (5-7) 07/31/24 19:10 Ur Specific [place] 1.015 (1.005-1.030) 07/31/24 19:10 Urine Protein Neg (Negative) 07/31/24 19:10 Urine Glucose (UA) Norm (Normal) 07/31/24 19:10 Urine Ketones Negative (Negative) 07/31/24 19:10 Urine Blood Neg (Negative) 07/31/24 19:10 Urine Nitrate Negative (Negative) 07/31/24 19:10 Urine Bilirubin Neg (Negative) 07/31/24 19:10 Urine Urobilinogen 1 mg/dL (Negative) H 07/31/24 19:10 Ur Leukocyte Esterase Negative (Negative) 07/31/24 19:10 Urine RBC 0-2 /hpf (0-2) 07/31/24 19:10 Urine WBC 0-5 /hpf (0-5) 07/31/24 19:10 Ur Squamous Epith Cells 0-5 /hpf (0-5) 07/31/24 19:10 Amorphous Sediment Not Reportable 07/31/24 19:10 Urine Bacteria None seen /hpf (NONE) 07/31/24 19:10 Hyaline Casts 0-4 /lpf H 07/31/24 19:10 All radiology interpretation(s) finalized by discharge Discharge Plan Discharge Patient Disposition: Home Clinical Impression: Generalized weakness Condition: Stable Prescriptions: No Action magnesium oxide 400 mg magnesium Tablet 400 mg PO BEDTIME sertraline 50 mg tablet 50 mg PO DAILY ketorolac 10 mg tablet 10 mg PO TID PRN (Reason: pain) Qty: 10 0RF Medrol (Nicolas) 4 mg tablets,dose pack See Rx Instructions .ROUTE .COMPLEX Qty: 21 0RF Rx Instructions: orally per package directions tizanidine 4 mg capsule 4 mg PO Q8H PRN (Reason: muscle spasticity) Qty: 10 0RF Discharge Orders: Discharge ED (Routine); Ordered 07/31/24 Ordered By: Jd Monterroso Referrals: Dong Orozco MD [Primary Care Provider] - 1 week Patient Instructions: Weakness (Generalized) Activity Restrictions/Additional Instructions: Thank you for choosing [facility] for your healthcare needs today. Please realize that you were seen in the emergency department and that we are providing you with an emergency medical screening exam and this may not be a complete and all exclusive of all testing and/or medical workup we may need to determine your element or severity of your illness. It is very important that you follow-up as instructed with your primary care provider or specialist for the additional evaluation and to discuss your medical treatment plan. You may return to the emergency department should you have concerns or if your condition changes or worsens in any way. Print Language: Barbadian Coding Level of Care Code ED Manager Motor for Chg Fwd Related Data Home Medications ?Medication ?Instructions ?Recorded ?Confirmed magnesium oxide 400 mg PO BEDTIME 12/06/21 01/02/24 sertraline 50 mg tablet 50 mg PO DAILY 03/28/23 01/02/24 Previous Rx's ?Medication ?Instructions ?Recorded ketorolac 10 mg tablet 10 mg PO TID PRN pain #10 tabs 05/25/23 methylprednisolone 4 mg tablets in See Rx Instructions PO .COMPLEX 05/25/23 a dose pack (Medrol (Nicolas)) #21 ea tizanidine 4 mg capsule 4 mg PO Q8H PRN muscle spasticity 01/27/24 #10 caps Allergies Allergy/AdvReac Type Severity Reaction Status Date / Time No Known Allergies Allergy Verified 01/02/24 13:56
[2024-07-31 18:15] LABS: Basophils % 0.3 %; Eosinophils # 0.1 10^3/uL (0.0-0.8); Eosinophils % 0.9 %; Hematocrit 45.8 % (37-53); Lymphocytes # 1.8 10^3/uL (0.8-4.8); Lymphocytes % 20.2 %; Mean Corpuscular Volume 88.1 fl (82-101); Monocytes # 0.8 10^3/uL (0.2-0.9); Monocytes % 8.9 %; Neutrophils # 6.19 10^3/uL (1.8-7.7); Neutrophils % 69.3 %; Nucleated Red Blood Cells % 0 %; Platelet Count 283 10^3/cmm (157-399); Red Cell Distribution Width 12.6 % (12.1-15.1); White Blood Count 8.95 10^3/uL (3.29-11.43)
[2024-07-31 18:39] LABS: Alanine Aminotransferase 31 U/L (0-41); Albumin Level 4.7 g/dL (3.5-5.2); Alkaline Phosphatase 81 U/L (40-130); Anion Gap 14.8 (5-19); Aspartate Amino Transferase 27 U/L (0-40); Blood Urea Nitrogen 15 mg/dL (6-20); Calcium 9.2 mg/dL (8.5-10.5); Carbon Dioxide 26 mmol/L (22-29); Chloride 102 mmol/L (98-107); Creatinine Clr Calc Pharmacy 148.4903; Globulin 2.5 g/dL (1.3-4.6); Glomerular Filtration Rate 107.1 mL/min (90-130); Glucose 90 mg/dL (65-115); Magnesium 2.1 mg/dL (1.7-2.3); Osmolality Calculated 288 mOsm/kg (285-295); Potassium 3.8 mmol/L (3.5-5.1); Sodium 139 mmol/L (136-145); Total Bilirubin 0.4 mg/dL (0.15-1.2); Total Protein 7.2 g/dL (6.6-8.7)
[2024-07-31 19:28] LABS: Add Urine Microscopic? YES; Bacteria Urine None Seen /hpf; Bilirubin Urine Neg (Negative); Blood Urine Neg (Negative); Glucose Urine UA Norm (Normal); Hyaline Casts Urine 0-4 /lpf; Ketones Urine Negative (Negative); Leukocyte Esterase Urine Negative (Negative); Nitrate Urine Negative (Negative); Protein Urine Neg (Negative); RBC Urine 0-2 /hpf (0-2); Specific Gravity, Urine 1.015 (1.005-1.030); Squamous Epithelial Cell Urine 0-5 /hpf (0-5); Urine Appearance Slightly Cloudy (CLEAR); Urine Color Yellow (Yellow); Urobilinogen Urine 1 mg/dL (Negative); WBC Urine 0-5 /hpf (0-5); pH Urine 7 (5-7)
[2024-07-31 20:18] VITALS: BP 122/86; PULSE 59; RESP 16; O2SAT 98
== END 2024-07-31 20:22 | disposition home or self-care (01) ==
PROVIDERS: Emergency Provider Emergency Medicine; PCP Family Medicine
DX: R53.1 Weakness (principal); I10 Essential (primary) hypertension
CPT/HCPCS: 36415; 80053; 81001; 83735; 85025; 99283

== ENCOUNTER 2024-12-17 11:01 | Emergency (ER) | payer OTHER, SELFPAY ==
[2024-12-17 11:06] VITALS: BP 117/71; PULSE 67; RESP 17; TEMP 37.1; O2SAT 98; BMI 34.2
[2024-12-17] MEDS: tetanus-dipt-pertussis 0.5 mL SDV IM (13:36)
--- NOTE | 2024-12-17 13:56 | W.ED.WOUNDLC ---
HPI - Wound/Laceration General: Chief Complaint: Wound/Laceration Stated Complaint: hit with a sign Time Seen by Provider: 12/17/24 13:16 Source: patient Mode of arrival: ambulatory Limitations: no limitations History of Present Illness: Patient is a 39-year-old male who presents the emergency department after being hit in the face by a sign while at work. This caused bruising to his right eye, and a laceration to his cheek. Bleeding controlled on arrival with the laceration, he did not lose consciousness and has not had any concerning signs or symptoms of any intracranial compromise. Has been ambulating normally, states tetanus is not up-to-date. This is a work-related injury. Vital stable. Onset (ago): minute(s) Location: face Place: work Patient tetanus UTD: No Context: accidental Associated symptoms: Denies chills, fever(s), nausea or vomiting Related Data Home Medications ?Medication ?Instructions ?Recorded ?Confirmed magnesium oxide 400 mg PO BEDTIME 12/06/21 01/02/24 sertraline 50 mg tablet 50 mg PO DAILY 03/28/23 01/02/24 Previous Rx's ?Medication ?Instructions ?Recorded ketorolac 10 mg tablet 10 mg PO TID PRN pain #10 tabs 05/25/23 methylprednisolone 4 mg tablets in See Rx Instructions PO .COMPLEX 05/25/23 a dose pack (Medrol (Nicolas)) #21 ea tizanidine 4 mg capsule 4 mg PO Q8H PRN muscle spasticity 05/25/23 #10 caps Allergies Allergy/AdvReac Type Severity Reaction Status Date / Time No Known Allergies Allergy Verified 01/02/24 13:56 Review of Systems General: Reports: 10 or more systems reviewed and unremarkable except in HPI and below Const: Reports: other (Head injury); Denies: fever(s) or chills Eyes: Reports: other (Ecchymosis of right eye) Card: Denies: chest pain Resp: Denies: dyspnea GI: Denies: abdominal pain, nausea, vomiting or diarrhea Musc: Denies: extremity pain or joint pain Skin/Breast: Reports: new lesions (Laceration to right cheek); Denies: rash, skin pain or skin tenderness Neuro: Denies: headache(s) PFS ED PFSH: Medical History Family history of coronary artery disease occurring prior to 55 years of age Hypertension No pertinent past medical history No pertinent family history Family History Father , [place] 43 y/o Myocardial infarction Mother Hyperlipidemia Other CAD (coronary artery disease) Social History Smoking and tobacco/nicotine status: unknown if used tobacco/nicotine Alcohol intake: current Alcohol intake frequency: holidays/special occasions only Physical Exam Const: COMMON NORMALS: no acute distress, average body habitus, patient oriented x3, no limitations, healthy appearing, alert and well nourished HENMT: COMMON NORMALS: normocephalic and atraumatic HEAD & SCALP: normocephalic and atraumatic; no Ribeiro's sign Eye: COMMON NORMALS: Equal, round and reactive pupils present, EOMs intact bilaterally and conjunctivae normal CONJUNCTIVA: Yes conjunctivae normal PUPIL: Yes Equal, round and reactive pupils present OTHER: Ecchymosis to right periorbital region Neck/C-Spine: COMMON NORMALS: full ROM, no lymphadenopathy, supple and no meningeal signs Resp: COMMON NORMALS: normal respiratory effort, No use of accessory muscles and clear to auscultation bilaterally AUSCULTATION: clear to auscultation bilaterally Cardio: COMMON NORMALS: regular rate and regular rhythm RATE: regular rate RHYTHM: regular rhythm Extremity: COMMON NORMALS: full ROM and capillary refill normal Neuro: COMMON NORMALS: patient oriented x3 SENSORIUM/ORIENTATION: Yes alert MENINGEAL SIGNS: Yes no meningeal signs Skin: COMMON NORMALS: turgor normal NARRATIVE SKIN EXAM: 2 cm very superficial laceration to right cheek, no active bleeding. GENERAL SKIN EXAM: turgor normal Procedures Laceration Laceration 1: Site: face Side (If applicable): right Size (cm): 2 Description: linear and clean Depth: simple, single layer Local Anesthetic: lidocaine 1% Amount of anesthesia used (mL): 1 Pre-repair: wound explored Skin layer closed with: nylon Size (cm): 6-0 Number of sutures: 2 Technique: simple, interrupted Course Vital Signs: Vital signs: Vital Signs Temperature 98.8 F 12/17/24 11:06 Pulse Rate 67 12/17/24 11:06 Respiratory Rate 17 12/17/24 11:06 Blood Pressure 117/71 12/17/24 11:06 Pulse Oximetry 98 12/17/24 11:06 Oxygen Delivery Me thod Room Air 12/17/24 11:06 MDM - Wound/Laceration Medical Decision Making Patient presented after being hit in the face with a sign while at work, this is a work-related injury. This caused a laceration to his right cheek, as well as injury to the right periorbital region where there is ecchymosis on exam. However neurologically intact no concern for any intracranial injury. Laceration was sutured, see procedure note. Proper wound care discussed and signs and symptoms watch for at home. He will be discharged at this time. His tetanus was updated today. No radiology studies performed this visit Discharge Plan Discharge Patient Disposition: Home Clinical Impression: Cheek laceration, Periorbital ecchymosis of right eye, Work related injury Condition: Stable Prescriptions: No Action magnesium oxide 400 mg magnesium Tablet 400 mg PO BEDTIME sertraline 50 mg tablet 50 mg PO DAILY ketorolac 10 mg tablet 10 mg PO TID PRN (Reason: pain) Qty: 10 0RF Medrol (Nicolas) 4 mg tablets,dose pack See Rx Instructions .ROUTE .COMPLEX Qty: 21 0RF Rx Instructions: orally per package directions tizanidine 4 mg capsule 4 mg PO Q8H PRN (Reason: muscle spasticity) Qty: 10 0RF Discharge Orders: Discharge ED (Routine); Ordered 12/17/24 Ordered By: Artis Rothman Referrals: Dong Orozco MD [Primary Care Provider, [facility]] Patient Instructions: Patient Portal & Louise Instructions Activity Restrictions/Additional Instructions: Facial Laceration Discharge Diagnosis and Treatment Summary: - 39-year-old male with traumatic right cheek laceration (two sutures placed), right periorbital ecchymosis, no evidence of intracranial injury, tetanus vaccination updated, work-related injury. Wound Care Instructions: - Keep the wound clean and covered for the first 24-48 hours. After this period, the wound may be gently cleansed with mild soap and water; there is no evidence that antiseptic solutions are superior to water or saline for wound cleaning. - Avoid scrubbing the wound. Pat dry after cleaning. - Maintain a moist wound environment with an occlusive or semi-occlusive dressing to promote optimal healing. - Sutures on the face are typically removed in 5-7 days to minimize scarring and reduce infection risk. - Monitor for signs of infection: increasing redness, swelling, warmth, purulent discharge, or fever. Mild superficial infections may be managed with topical agents; deeper or moderate infections require oral antibiotics. Antibiotic Prophylaxis: - Routine prophylactic antibiotics are not indicated for simple, non-contaminated facial lacerations in healthy adults. Antibiotics should only be considered if the wound is grossly contaminated, involves significant tissue destruction, or the patient is immunocompromised, none of which are present in this case. Tetanus Prophylaxis: - Tetanus vaccination has been updated in accordance with the Advisory Committee on Immunization Practices and CDC recommendations. No further tetanus prophylaxis is required at this time. Eye Injury Care: - No evidence of globe rupture or intracranial injury. Advise the patient to avoid rubbing the affected eye and to monitor for new symptoms such as vision changes, severe pain, or persistent swelling, which would warrant prompt ophthalmologic evaluation. - If periorbital swelling is significant, cold compresses may be applied intermittently for the first 24-48 hours to reduce swelling. Activity and Work: - The patient may resume normal activities as tolerated but should avoid activities that risk re-injury or contamination of the wound. - If the injury was work-related, provide documentation as needed for occupational health follow-up. Follow-Up: - Schedule suture removal in 5-7 days. - Advise return for evaluation if there are signs of infection, wound dehiscence, or any new ocular symptoms. Patient Education: - Emphasize the importance of wound hygiene and early recognition of infection. - Reassure that facial wounds generally heal well due to robust blood supply, and infection rates are low with proper care. Print Language: [place] Coding Level of Care Code ED Mortgage Loan Coordinator for Karlie Gzuman
[2024-12-17 13:58] VITALS: BP 128/74; PULSE 75; RESP 18; O2SAT 99
== END 2024-12-17 13:58 | disposition home or self-care (01) ==
PROVIDERS: Emergency Provider Physician Assistant; PCP Family Medicine
DX: S01.411A Laceration without foreign body of right cheek and temporomandibular area, initial encounter (principal); S05.11XA Contusion of eyeball and orbital tissues, right eye, initial encounter; W22.8XXA Striking against or struck by other objects, initial encounter
CPT/HCPCS: 12011; 90471; 90715; 99283